=== PATIENT | female | born 1960 | race Two or more races ===

== ENCOUNTER 2017-01-05 21:31 | Emergency (ER) | payer BC, OTHER ==
--- NOTE | 2017-01-05 21:35 | PDOC ---
History of Present Illness - General History Source: Patient, Family Exam Limitations: No Limitations - History of Present Illness Initial Comments: 01/05/17 21:42 The patient is a 56 year old female, with significant past medical history of HTN, who presents to the emergency room because she felt like she was uncoordinated or off balance all day. At 6:30 this evening, she started to feel like her eyes were popping out of her head and that she felt like she was unable to move them side to side. This sensation started intermittently in the right eye then jumped to the left eye. She reports blurry vision in the right eye. The patient ambulated into the emergency room, but needed her sisters assistance to maintain balance so that she would not fall over. Denies fever, chills, nausea, vomiting. Denies recent illness. Denies headache, lightheadedness, dizziness. Allergies: none reported <Hollie Aponte - Last Filed: 01/05/17 21:51> <Cha Moreno - Last Filed: 01/06/17 06:31> - General Chief Complaint: Lightheaded Stated Complaint: VERTIGO, UNSTEADY ON HER FEET Time Seen by Provider: 01/05/17 21:34 Past History <Hollie Aponte - Last Filed: 01/05/17 21:51> <Cha Moreno - Last Filed: 01/06/17 06:31> - Past Medical History Allergies/Adverse Reactions: Allergies Allergy/AdvReac Type Severity Reaction Status Date / Time No Known Allergies Allergy Verified 01/06/17 01:03 Home Medications: Ambulatory Orders Diphenhydramine [Benadryl -] 50 mg PO DAILY #20 capsule 01/06/17 Review of Systems - Review of Systems Able to Perform ROS?: Yes Comments:: 01/05/17 21:43 CONSTITUTIONAL: Present: off balance feeling Absent: fever, no chills, no fatigue EYES: Present: sensation that her eyes are popping out bilaterally. blurry vision in the right eye. ENT: Absent: ear pain, no sore throat CARDIOVASCULAR: Absent: chest pain, no palpitations RESPIRATORY: Absent: cough, no SOB MUSCULOSKELETAL: Absent: back pain, no arthralgia, no myalgia SKIN: Absent: rash NEURO: Absent: headache <oHllie Aponte - Last Filed: 01/05/17 21:51> *Physical Exam - Physical Exam Comments: GENERAL: Adult female, alert and oriented 3, anxious but in no acute distress HEAD: Normal with no signs of trauma. EYES: PERRLA, sclera anicteric, conjunctiva clear. Eyes intermittently have evidence of exophthalmos and abnormal extraocular movements(lateral and medial deviation from midline) Gaze is conjugate during these episodes and patient does not appear to have control of movements of her eyes These episodes last a few minutes and are followed by long periods of normal EOM with no exophthalmos No abnormal nystagmus present. ENT: Ears normal, nares patent, oropharynx clear without exudates. Dry mucous membranes. NECK: Normal range of motion, supple without lymphadenopathy, JVD, or masses. LUNGS: Breath sounds equal, clear to auscultation bilaterally. No wheezes, and no crackles. HEART:Regular rate and rhythm, normal S1 and S2 without murmur, rub or gallop. ABDOMEN:.normal bowel sounds No guarding,tenderness or rebound.No masses No distention. EXTREMITIES: Normal range of motion, no edema. No clubbing or cyanosis. No erythema, or tenderness. NEUROLOGICAL: Cranial nerves II through XII grossly intact other than episodes of abnormal extraocular movements. Normal speech. Motor 5/5, no sensory deficits MUSCULOSKELETAL: Back non-tender to palpation, no CVA tenderness SKIN: Warm, Dry, normal turgor, no rashes or lesions noted. <Cha Moreno - Last Filed: 01/06/17 06:31> ED Treatment Course - LABORATORY CBC & Chemistry Diagram: 01/05/17 22:00 01/05/17 22:00 <Cha Moreno - Last Filed: 01/06/17 06:31> Progress Note - Progress Note Progress Note: Documentation has been prepared under my direction and personally reviewed by me in its entirety. I attest that this documented accurately reflects all work, treatment, procedures and medical decision making performed by me. <Cha Moreno - Last Filed: 01/06/17 06:31> Medical Decision Making - Medical Decision Making This 56-year-old woman presents with complaints of intermittent abnormal eye movements for the last several hours. She also has had some vague feelings of difficulty with coordination during that time. She has had no other distinct neurologic complaints as noted above. She has been alert and oriented and there has been no evidence of dysarthria/aphasia/focal extremity weakness. Although she has had a history of vertigo in the past, she denies that symptom currently. Exam shows evidence of ocular muscle dystonia, consistent with oculogyric crisis. No other focal neurologic deficit is present. The patient was asked in detail about her medications. Although she was originally vague, stating that she could not remember the medications that she was taking, she eventually stated that she was taking nortriptyline/bupropion/clonazepam, prescribed by her psychiatrist (stating that she saw him in follow-up last week). She denies that there was any change in her medication dosage. She had been on these medications for approximately 6 months. Soon after stating this, she admitted that she had never taken the nortriptyline because she was afraid of taking this medication. Patient had CBC/chemistry profile/cardiac enzymes/noncontrast head CT. 12-lead electrocardiogram shows normal sinus rhythm at 66 bpm; axis, intervals and wave forms are all normal. Laboratory evaluation is essentially normal except for mild prerenal azotemia. Noncontrast head CT showed no acute intracranial pathology. Clinical presentation most consistent with acute dystonia. It is unclear from patient's history whether this is new onset or she has had chronic movement disorder with acute episode worsening symptoms today. The origin of her dystonia is unclear. Although she states she never took nortriptyline, she has taken bupropion which can also cause dystonia. It is also unclear whether the patient has taken any other neuroleptics in the past. Until the patient can follow-up with her general doctor, diphenhydramine 50 mg up to twice a day will be prescribed as an anticholinergic to help with her dystonia. First dose given here in the emergency room. Meanwhile, she should continue her medications with decisions to change or taper medication left to her general medical doctor and her psychiatrist. She should return to the ER if she has any severe pain/muscle spasms/difficulty swallowing or shortness of breath. Patient was discharged in the company of her family, in no acute distress. <Cha Moreno - Last Filed: 01/06/17 06:31> *DC/Admit/Observation/Transfer - Attestations Scribe Attestion: 01/05/17 21:45 Documentation prepared by WILFREDO Anderson, acting as director of graduate medical education for Cha Moreno MD. <Hollie Aponte - Last Filed: 01/05/17 21:51> <Cha Moreno - Last Filed: 01/06/17 06:31> Diagnosis at time of Disposition: Focal dystonia - Discharge Dispostion Disposition: HOME Condition at time of disposition: Stable - Prescriptions Prescriptions: Diphenhydramine [Benadryl -] 50 mg PO DAILY #20 capsule - Patient Instructions Printed Discharge Instructions: Focal Dystonia Additional Instructions: Continue medications as prescribed Benadryl 50 mg up to twice a day as needed for eye muscle spasms drink plenty of fluids Follow-up with your general doctor within the next 2 days See your neurologist next week as scheduled Return to ER if you have severe symptoms, difficulty swallowing
[2017-01-05 22:19] LABS: PH,URINE 5.5 (4.5-8); URINE APPEARANCE Clear; URINE BILIRUBIN Negative (NEGATIVE); URINE BLOOD 2+ (NEGATIVE); URINE GLUCOSE (UA) Negative (NEGATIVE); URINE KETONE Trace (NEGATIVE); URINE NITRITE Negative (NEGATIVE); URINE PROTEIN Trace (NEGATIVE)
[2017-01-05 22:20] LABS: URINE LEUK ESTERASE 1+ (NEGATIVE)
[2017-01-05 22:21] LABS: URINE COLOR YELLOW
[2017-01-05 22:29] LABS: BASOPHIL 2.1 % (0-2.0); EOSINOPHIL 2.7 % (0-4.5); MCH 28.7 pg (25.7-33.7); MCHC 34.2 g/dl (32.0-36.0); MEAN CELL VOLUME 83.9 fl (80-96); MEAN PLT VOLUME 9.9 fl (7.5-11.1); NEUTROPHILS 47.9 % (42.8-82.8); PLATELET COUNT 281 K/MM3 (134-434); RDW 14.5 % (11.6-15.6); WHITE BLOOD COUNT 10.7 K/mm3 (4.0-10.8)
[2017-01-05 22:31] LABS: INR 1.11 (0.82-1.09); PROTHROMBIN TIME (PATIENT) 12.4 SEC (10.2-13.0)
[2017-01-05 22:34] LABS: CPK 118 IU/L (26-192)
[2017-01-05 22:35] LABS: ALBUMIN 4.1 g/dl (3.5-5.0); ALK PHOS 72 U/L (32-92); ANION GAP 7 (8-16); CALCIUM 9.4 mg/dl (8.4-10.2); CO2 27 mmol/L (22-28); GLUCOSE,RANDOM 106 mg/dl (74-106); SGOT/AST 17 U/L (10-42); SGPT/ALT 17 U/L (10-40); TOT PROT 7.9 g/dl (6.4-8.3)
[2017-01-05 22:45] LABS: TROPONIN I (DFP) < 0.03 ng/ml (0.03-0.50)
[2017-01-05 22:48] LABS: BILIRUBIN,TOTAL < 0.3 mg/dl (0.2-1.0)
[2017-01-05 23:08] VITALS: BP 160/75; PULSE 76; TEMP 98.5; BMI 64.4
[2017-01-05 23:10] LABS: URINE AMORPHOUS SEDIMENT 1+
[2017-01-06] MEDS ORDERED: diphenhydrAMINE HCL 25 MG CAPSULE (FP) PO ONE (00:58)
[2017-01-06] MEDS ORDERED: diphenhydrAMINE HCL 50 MG CAPSULE ONE (00:58)
--- NOTE | 2017-01-06 19:15 | EKG ---
Test Reason : Blood Pressure : / mmHG Vent. Rate : 066 BPM Atrial Rate : 066 BPM P-R Int : 152 ms QRS Dur : 074 ms QT Int : 406 ms P-R-T Axes : 057 000 033 degrees QTc Int : 425 ms NORMAL SINUS RHYTHM NORMAL ECG NO PREVIOUS ECGS AVAILABLE Confirmed by LUKASZ UNGER MD ([id number]) on 01/06/2017 7:14:42 PM Referred By: ESTUARDO Confirmed By:LUKASZ UNGER MD
== END 2017-01-06 01:11 | disposition home or self-care (01) ==
LOC: FER 21:31
DX: G24.8 Other dystonia (principal); I10 Essential (primary) hypertension
CPT/HCPCS: 36415; 70450-TC; 80053; 81003; 81015; 84484; 85025; 85610; 93005; 99281-25

== ENCOUNTER 2017-06-15 12:37 | Emergency (ER) | payer OTHER ==
[2017-06-15 12:46] VITALS: BP 160/86; PULSE 89; TEMP 98.2; BMI 30.2
--- NOTE | 2017-06-15 14:12 | PDOC ---
History of Present Illness - General History Source: Patient <TracyJoe Zuniga - Last Filed: 06/15/17 14:51> - General History Source: Patient Exam Limitations: No Limitations - History of Present Illness Initial Comments: 06/15/17 14:31 The patient is a 56 year old female, with no significant past medical history, who presents to the emergency department with, itching and painful sensation of the vagina. The patient reports she has not used the medication, Nystatin, she was prescribed 6 months ago due to her lack of insurance. She reports pain and discomfort in the perivulvar area. She reports to have similar symptoms which were resolved with her vaginal cream. She denies recent fevers, chills, headache or dizziness. She denies recent nausea, vomit, diarrhea or constipation. She denies recent dysuria, frequency, urgency or hematuria. She denies recent chest pain or shortness of breath. Allergies: NKA Past surgical history: None reported. Social history: Nonsmoker. Denies EtOH use and recreational drug use. 06/15/17 14:31 <Kalpana Lou - Last Filed: 06/15/17 16:27> - General Chief Complaint: Vaginal Sxs Stated Complaint: vaginal sores Time Seen by Provider: 06/15/17 12:44 Past History - Travel Traveled outside of the country in the last 30 days: No Close contact w/someone who was outside of country & ill: No - Past Medical History COPD: No Other medical history: litchen planus - Surgical History Abdominal Surgery: Yes (exploratory lap) - Suicide/Smoking/Psychosocial Hx Smoking History: Current every day smoker Have you smoked in the past 12 months: No Number of Cigarettes Smoked Daily: 15 Information on smoking cessation initiated: Yes 'Breaking Loose' booklet given: 06/15/17 Hx Alcohol Use: No Drug/Substance Use Hx: No Substance Use Type: None <Joe Molina - Last Filed: 06/15/17 14:51> <Kalpana Lou - Last Filed: 06/15/17 16:27> - Past Medical History Allergies/Adverse Reactions: Allergies Allergy/AdvReac Type Severity Reaction Status Date / Time No Known Allergies Allergy Verified 06/15/17 12:38 Home Medications: Ambulatory Orders Hydrochlorothiazide [Hctz -] 25 mg PO DAILY 06/15/17 Nystatin Cream [Mycostatin Cream -] 1 applic VG BID #7 applic 06/15/17 Review of Systems - Review of Systems : Yes: Pain, Other (Discomfort, Itching) All Other Systems: Reviewed and Negative <Kalpana Lou - Last Filed: 06/15/17 16:27> *Physical Exam - Vital Signs Last Vital Signs Temp Pulse Resp BP Pulse Ox 98.2 F 89 18 160/86 100 06/15/17 12:37 06/15/17 12:37 06/15/17 12:37 06/15/17 12:37 06/15/17 12:37 <Joe Molina - Last Filed: 06/15/17 14:51> - Vital Signs Last Vital Signs Temp Pulse Resp BP Pulse Ox 98.2 F 89 18 160/86 100 06/15/17 12:37 06/15/17 12:37 06/15/17 12:37 06/15/17 12:37 06/15/17 12:37 - Physical Exam Comments: 06/15/17 14:22 Patient deferred physical exam. General Appearance: Yes: Nourished, Appropriately Dressed, Other (Alert and orientated x3) HEENT: positive: EOMI, RUBA, Normal ENT Inspection, Normal Voice, Symmetrical, TMs Normal, Pharynx Normal Neck: positive: Supple Respiratory/Chest: positive: Normal Breath Sounds Cardiovascular: positive: Regular Rhythm, Regular Rate Gastrointestinal/Abdominal: positive: Normal Bowel Sounds Musculoskeletal: positive: Normal Inspection Extremity: positive: Normal Capillary Refill, Normal Inspection, Normal Range of Motion Integumentary: positive: Normal Color, Dry, Warm Neurologic: positive: Alert, Normal Mood/Affect, Normal Response, Motor Strength 5/5, Other (Alert and orientated x3.) <Kalpana Lou - Last Filed: 06/15/17 16:27> *DC/Admit/Observation/Transfer - Discharge Dispostion Admit: No <Joe Molina - Last Filed: 06/15/17 14:51> - Attestations Scribe Attestion: 06/15/17 14:32 Documentation prepared by Kalpana Lou, acting as medical transcription supervisor for Joe Molina MD. <Kalpana Lou - Last Filed: 06/15/17 16:27> Diagnosis at time of Disposition: Lichen planopilaris - Discharge Dispostion Disposition: HOME Condition at time of disposition: Stable - Prescriptions Prescriptions: Nystatin Cream [Mycostatin Cream -] 1 applic VG BID #7 applic - Patient Instructions Printed Discharge Instructions: DI for Lichen Planus Additional Instructions: Follow up with your Clicker Operator MD
== END 2017-06-15 15:02 | disposition home or self-care (01) ==
LOC: FER 12:37
DX: L66.1 Lichen planopilaris (principal); F17.210 Nicotine dependence, cigarettes, uncomplicated
CPT/HCPCS: 99281-25